=== PATIENT | male | born 1965 | race Caucasian/White ===

== ENCOUNTER → 2016-08-27 | Outpatient (CLI) | payer BC, MEDICAID ==
[~2016-08-27] MED LIST: ALBUTEROL MININEB INH; BENZONATATE PO; IMURAN50 MG PO; NO MEDICATIONS; PREDNISONE PO; PROMETHAZINE W118 M2 PO; ZITHROMAX PO
--- NOTE | ~2016-08-27 | US6 ---
[facility] A Service of [facility] RADIOLOGY TEXT RESULTS PATIENT: KAVYA PERKINS LOCATION: [place] : 69 UNIT #: [id number] AGE: [address]: Sherman Law MD SEX: M ORDER DR: [id number] [facility] [address], [place] [address] [id number] MR#: [id number] Acc #: [id number] NAME: KAVYA PERKINS. : 1965 SEX: M STUDY DATE/TIME: 08/27/2016 8:58 UNIT: CGUS ROOM: STUDY DESCRIPTION: US Abdominal Limited Attending Physician: Sherman Law M.D. Referring Physician: Sherman Law M.D. Ordering Physician: Sherman Law M.D. Primary Care Physician: Sherman Law M.D. MEDICAL IMAGING REPORT This report is preliminary unless electronic signature is present EXAM Right upper quadrant abdominal ultrasound INDICATION Cirrhosis. Autoimmune hepatitis. Observation for hepatocellular carcinoma. PROCEDURE Agudelo-scale and Doppler imaging right upper quadrant of the abdomen. COMPARISON 04/30/2016 FINDINGS Pancreas unremarkable. Liver measures 16.5 cm and has increased echotexture. No surface nodularity is seen by ultrasound. Right kidney measures 14.7 cm and is unremarkable. Unremarkable gallbladder. Common duct measures 4.0 mm. No ascites. IMPRESSION Increased liver echotexture suggesting steatosis. The liver is not frankly cirrhotic by ultrasound. There is no liver mass seen on submitted images. Dictated by... Boo Mendieta M.D. THIS IS AN ELECTRONICALLY VERIFIED REPORT Boo Mendieta M.D. at 08/28/2016 7:08 AM Rodolfo TD: 08/27/2016 13:02 JOB #: [id number] [facility] A Service of [facility] RADIOLOGY TEXT RESULTS PATIENT: KAVYA PERKINS LOCATION: [place] : 69 UNIT #: [id number] AGE: [address]: Sehrman Law MD SEX: M ORDER DR: MEDICAL IMAGING REPORT Page 1 of 1 COPY
== END | disposition home or self-care (01) ==
LOC: CGUS 07:53 → CIVR 09:00
DX: R18.8 Other ascites (principal); K75.4 Autoimmune hepatitis; K74.69 Other cirrhosis of liver
CPT/HCPCS: 76705